=== PATIENT | female | born 1935 | race Hispanic/Latino ===

== ENCOUNTER 2021-11-23 10:02 | Emergency (ER) | payer MEDICARE ==
[~2021-11-23] VITALS: Ht 167.6 cm; Wt 63.0 kg
[2021-11-23] MEDS ORDERED: ACETAMINOPHEN 500 MG TABLET PO ONE (10:30)
[2021-11-23 11:50] LABS: APPEARANCE,URINE Clear (CLEAR); BILIRUBIN,URINE Negative (NEGATIVE); COLOR,URINE Yellow (YELLOW); GLUCOSE, URINE (UA) Negative (NEGATIVE); KETONES,URINE Negative (NEGATIVE); LEUKOCYTE ESTERASE ,URINE Trace (NEGATIVE); NITRATE,URINE Negative (NEGATIVE); OCCULT BLOOD,URINE Negative (NEGATIVE); PROTEIN,URINE Negative (NEGATIVE); UROBILINOGEN,URINE 0.2 mg/dL (0.2-1.0)
[2021-11-23 12:06] LABS: BACTERIA,URINE Rare /HPF (None Seen); RBC,URINE 0-1 /HPF (0-1); SQUAMOUS EPITHELIAL CELL,UR Rare /HPF (0-2); WBC,URINE 0-1 /HPF (0-1)
[2021-11-23] MEDS ORDERED: ACET-66 PO (12:09)
[2021-11-23 12:17] VITALS: BP 147/100
== END 2021-11-23 12:16 | disposition home or self-care (01) ==
LOC: EDH 10:02
DX: M16.12 Unilateral primary osteoarthritis, left hip (principal); I10 Essential (primary) hypertension; M06.9 Rheumatoid arthritis, unspecified; M81.0 Age-related osteoporosis without current pathological fracture; Z90.49 Acquired absence of other specified parts of digestive tract; Z90.710 Acquired absence of both cervix and uterus
CPT/HCPCS: 73502; 81001; 87077; 87088; 87186

== ENCOUNTER 2022-09-28 15:49 | Emergency (ER) | payer MEDICARE ==
[~2022-09-28] VITALS: Ht 165.1 cm; Wt 62.6 kg
[~2022-09-28 15:49] MED LIST: ACET-66 PO
[2022-09-28 19:54] LABS: BASOPHILS % (AUTO) 0.2 % (0.0-5.0); EOSINOPHILS % (AUTO) 0.4 % (0.0-8.0); HEMATOCRIT 39.3 % (36-48); LYMPHOCYTES % (AUTO) 14.9 % (21.0-51.0); MEAN CORPUSCULAR HEMOGLOBIN 31.9 pg (27.0-33.0); MEAN CORPUSCULAR HGB CONC 34.4 g/dL (32.0-36.0); MEAN CORPUSCULAR VOLUME 92.9 fL (79-99); MONOCYTES % (AUTO) 11.9 % (3.0-13.0); NEUTROPHILS % (AUTO) 72.2 % (40.0-77.0); PLATELET COUNT (AUTO) 276 K/uL (130-400); RED BLOOD CELL COUNT(AUTO) 4.23 MIL/uL (4.00-5.50); WHITE BLOOD COUNT (AUTO) 10.7 K/uL (4.8-10.8)
[2022-09-28 20:05] LABS: CREATININE 0.8 mg/dL (0.5-1.5)
[2022-09-28 20:10] LABS: ALBUMIN 3.9 g/dL (3.5-5.0); TOTAL PROTEIN, SERUM 7.2 g/dL (6.0-8.3)
[2022-09-28 20:12] LABS: INR 1.01 (0.85-1.15)
[2022-09-28 20:13] LABS: PARTIAL THROMBOPLASTIN TIME 25.2 SEC (26.3-35.5)
[2022-09-28] MEDS ORDERED: IBUP-2070 PO (20:24)
[2022-09-28] MEDS ORDERED: ACETAMINOPHEN WITH CODEINE 1 TAB TAB PO ONE (20:30)
[2022-09-28] MEDS ORDERED: POTASSIUM BICARB/CIT AC 25 MEQ TABLET.EFF PO SCH (20:30)
[2022-09-28 20:46] VITALS: BP 128/54
[2022-09-30] MEDS ORDERED: LIDOP TP (16:28)
== END 2022-09-28 20:47 | disposition home or self-care (01) ==
LOC: EDH 15:49
DX: S60.212A Contusion of left wrist, initial encounter (principal); M16.12 Unilateral primary osteoarthritis, left hip; I10 Essential (primary) hypertension; Z90.89 Acquired absence of other organs; Z90.710 Acquired absence of both cervix and uterus; Z90.49 Acquired absence of other specified parts of digestive tract; W18.30XA Fall on same level, unspecified, initial encounter; Y93.89 Activity, other specified; Y92.89 Other specified places as the place of occurrence of the external cause; Y99.8 Other external cause status
CPT/HCPCS: 36415; 70450; 73100; 73502; 80053; 85025; 85610; 85730